=== PATIENT | male | born 1990 | race African-American/Black ===

== ENCOUNTER 2018-05-08 19:08 | Emergency (ER) | payer OTHER ==
[~2018-05-08] VITALS: Ht 175.3 cm; Wt 77.3 kg
[~2018-05-08 19:08] MED LIST: ALBU17AE27 IH
[2018-05-08] MEDS ORDERED: LIDOCAINE/PF 1% 5 ML VIAL INJ ONE (19:45)
[2018-05-08] MEDS ORDERED: BACITRACIN 0.9 GM PACKET OINTMENT TP ONE (19:45)
[2018-05-08] MEDS ORDERED: PERTUSS(ACELL),DIPH,TET VAC/PF 0.5 ML VIAL IM ONE (19:45)
[2018-05-08 21:07] VITALS: BP 127/74
== END 2018-05-08 21:10 | disposition home or self-care (01) ==
LOC: EMS 19:08
DX: S61.213A Laceration without foreign body of left middle finger without damage to nail, initial encounter (principal); J45.909 Unspecified asthma, uncomplicated; F17.210 Nicotine dependence, cigarettes, uncomplicated; W45.8XXA Other foreign body or object entering through skin, initial encounter; Y93.89 Activity, other specified; Y92.89 Other specified places as the place of occurrence of the external cause; Y99.8 Other external cause status
CPT/HCPCS: 12001; 90471; 90715; 99283; 99406; J3490

== ENCOUNTER 2023-10-13 14:19 | Emergency (ER) | payer OTHER ==
[~2023-10-13] VITALS: Ht 175.3 cm; Wt 75.0 kg
[2023-10-13 14:27] VITALS: BP 125/65; PULSE 88; RESP 18; TEMP 97.9
[2023-10-13] MEDS: IBUPROFEN 600 MG TABLET PO ONE (16:59)
== END 2023-10-13 18:33 | disposition home or self-care (01) ==
LOC: EMS 14:51
DX: S63.501A Unspecified sprain of right wrist, initial encounter (principal); J45.909 Unspecified asthma, uncomplicated; F17.210 Nicotine dependence, cigarettes, uncomplicated; X58.XXXA Exposure to other specified factors, initial encounter; Y93.89 Activity, other specified; Y92.89 Other specified places as the place of occurrence of the external cause; Y99.8 Other external cause status
CPT/HCPCS: 99283

== ENCOUNTER 2023-12-02 15:17 | Emergency (ER) | payer OTHER ==
[~2023-12-02] VITALS: Ht 175.3 cm; Wt 72.7 kg
[2023-12-02] MEDS ORDERED: MAGN400T57 PO (15:22)
[2023-12-02] MEDS ORDERED: CYCL-448 PO (21:50)
[2023-12-02] MEDS ORDERED: IBUP-1492 PO (21:50)
[2023-12-02 22:05] VITALS: BP 129/68; PULSE 68; RESP 18; TEMP 98.3
== END 2023-12-02 22:14 | disposition home or self-care (01) ==
LOC: EMS 15:20
DX: G89.29 Other chronic pain (principal); M54.50 Low back pain, unspecified; J45.909 Unspecified asthma, uncomplicated; F17.210 Nicotine dependence, cigarettes, uncomplicated
CPT/HCPCS: 99283; Z7502

== ENCOUNTER 2024-06-10 12:36 | Emergency (ER) | payer MEDICARE, MEDICAID ==
[~2024-06-10] VITALS: Ht 175.3 cm; Wt 68.2 kg
[~2024-06-10 12:36] MED LIST changes: -ALBU17AE27 IH; +CYCL-448 PO; +IBUP-1492 PO; +MAGN400T57 PO
[2024-06-10 12:46] VITALS: TEMP 98
[2024-06-10] MEDS ORDERED: ALBU18HF12 PO (12:46)
[2024-06-10 13:25] VITALS: BP 119/64; PULSE 79; RESP 17; O2SAT 98
[2024-06-10] MEDS: ACETAMINOPHEN 500 MG TABLET PO ONE (14:26)
[2024-06-10] MEDS: DOXYCYCLINE HYCLATE 100 MG TABLET PO ONE (14:26)
[2024-06-10] MEDS: LIDOCAINE 1% 10 ML VIAL SQ ONE (14:26)
[2024-06-10] MEDS: CEPHALEXIN MONOHYDRATE 500 MG CAPSULE PO ONE (14:26)
[2024-06-10] MEDS: IBUPROFEN 600 MG TABLET PO ONE (14:26)
[2024-06-10] MEDS ORDERED: ACET-66 PO (15:02)
[2024-06-10] MEDS ORDERED: CEPH-558 PO (15:02)
[2024-06-10] MEDS ORDERED: IBUP-1554 PO (15:02)
[2024-06-10] MEDS ORDERED: DOXY-354 PO (15:02)
== END 2024-06-10 15:11 | disposition home or self-care (01) ==
LOC: EMS 12:42
DX: L02.01 Cutaneous abscess of face (principal); J45.909 Unspecified asthma, uncomplicated; F17.210 Nicotine dependence, cigarettes, uncomplicated
CPT/HCPCS: 99284; 10160; J3490

== ENCOUNTER 2025-03-23 15:42 | Emergency (ER) | payer MEDICAID, MEDICARE ==
[~2025-03-23] VITALS: Ht 177.8 cm; Wt 72.7 kg
[~2025-03-23 15:42] MED LIST changes: +ACET-66 PO; +ALBU18HF12 PO; +CEPH-558 PO; -CYCL-448 PO; +DOXY-354 PO; -IBUP-1492 PO; +IBUP-1554 PO; -MAGN400T57 PO
[2025-03-23 15:49] VITALS: TEMP 98.6
[2025-03-23 16:14] VITALS: BP 124/87; PULSE 71; RESP 16; O2SAT 97
[2025-03-23] MEDS: ACETAMINOPHEN 500 MG TABLET PO ONE (16:24)
== END 2025-03-23 18:56 | disposition home or self-care (01) ==
LOC: EMS 15:42
DX: S90.32XA Contusion of left foot, initial encounter (principal); F17.210 Nicotine dependence, cigarettes, uncomplicated; J45.909 Unspecified asthma, uncomplicated; Z79.899 Other long term (current) drug therapy; W18.40XA Slipping, tripping and stumbling without falling, unspecified, initial encounter; Y93.39 Activity, other involving climbing, rappelling and jumping off; Y92.89 Other specified places as the place of occurrence of the external cause; Y99.8 Other external cause status
CPT/HCPCS: 99283